=== PATIENT | male | born 1945 | race Caucasian/White ===

== ENCOUNTER 2022-11-28 09:08 | Emergency (ER) | payer MEDICARE ==
[2022-11-28] MEDS ORDERED: NEOSYNEPHRINE 0.5% NASAL SPRAY/DROPS ONE (09:49)
[2022-11-28 09:50] LABS: Absolute Neutrophil Ct (ANC) 2.95 x10^3/uL (1.4-6.9); Basophil (Absolute #) 0.05 x10^3/uL (0-0.4); Eosinophil % 2.7 % (0.00-5.0); Eosinophil (Absolute #) 0.14 x10^3/uL (0-0.5); Hematocrit 47.4 % (42-50); Hemoglobin 15.9 g/dL (12.5-18.0); Lymphocyte (Absolute #) 1.68 x10^3/uL (1.0-4.6); Mean Cell Volume 97.1 fL (78-100); Mean Corpuscular Hemoglobin 32.6 pg (26-32); Mean Corpuscular Hgb Concent. 33.5 g/dL (32-36); Mean Platelet Volume 10.2 fL (7.5-11.0); Monocyte (Absolute #) 0.42 x10^3/uL (0.0-1.3); Neutrophil % 56.1 % (36.0-66.0); Platelet Count 133 x10^3/uL (150-450); Red Blood Count 4.88 x10^6/uL (4.1-5.6); Red Cell Distribution Width 12.2 % (11.5-14.0); White Blood Count 5.3 x10^3/uL (4.0-10.5)
--- NOTE | 2022-11-28 10:02 | ERPHSYRPT ---
- History of Present Illness Source: patient, other () Exam Limitations: no limitations Patient Subjective Stated Complaint: Nose bleed Triage Nursing Assessment: Patient ambulated back to ED and transferred self to bed. Patient A+O X3. Patient's skn pink, warm and dry. Patient complains of nose bleed that started last night and stopped. Patient states he woke up at 0700 with left side of nose bleeding. Left side of nare noted to not have active bleeding at this time. Patient states he is on coumadin. Patient denies recent trauma. Patient also denies pain or discomfort. Physician History: 77 yo wm who is taking Coumadin for recurrent h/o DVT presents w intermittent L epistaxis. Pt wo epistaxis in ER. Last INR was low. He denies trau ma/melena/hematochezia/bleeding from gums/chest pain/dyspnes. Timing/Duration: abrupt onset Severity: mild ENT Location: nose (L nares) Prearrival Treatment: no prearrival treatment Associated Symptoms: denies symptoms, epistaxis Allergies/Adverse Reactions: Sulfa (Sulfonamide Antibiotics) Allergy (Mild, Verified 11/28/22 09:16) Home Medications: Losartan Potassium 100 mg PO DAILY 07/25/22 [History] Hx Tetanus, Diphtheria Vaccination/Date Given: Yes Hx Influenza Vaccination/Date Given: Yes Hx Pneumococcal Vaccination/Date Given: No Immunizations Up to Date: Yes Travel Risk - International Travel Have you traveled outside of the country in past 3 weeks: No - Coronavirus Screening Are you exhibiting any of the following symptoms?: No Close contact with a COVID-19 positive Pt in past 14-21 Days: No - Vaccine Status Have you recieved a Covid-19 vaccination: Yes Shirt Maker: Moderna - Vaccination Dates Date of 2cond Vaccination (if applicable): na - Review of Systems Constitutional: No Symptoms Eyes: Photophobia Ears, Nose, & Throat: No Symptoms, Epistaxis Respiratory: No Symptoms Cardiac: No Symptoms Abdominal/Gastrointestinal: No Symptoms Genitourinary Symptoms: No Symptoms Musculoskeletal: No Symptoms Skin: No Symptoms Neurological: No Symptoms Psychological: No Symptoms Endocrine: No Symptoms Hematologic/Lymphatic: No Symptoms Immunological/Allergic: No Symptoms - Past Medical History Pertinent Past Medical History: Yes Neurological History: No Pertinent History Cardiac History: Other Respiratory History: No Pertinent History Endocrine Medical History: Diabetes Type II Musculoskeletal History: No Pertinent History GI Medical History: No Pertinent History History: No Pertinent History Other Medical History: BLOOD CLOT IN R LEG - Past Surgical History Past Surgical History: Yes Other Surgical History: TONSILS - Social History Smoking Status: Never smoker Exposure to second hand smoke: No Drug Use: none Patient Lives Alone: No - Nursing Vital Signs Nursing Vital Signs: Initial Vital Signs Temperature 97.4 F 11/28/22 09:18 Pulse Rate 86 11/28/22 09:18 Respiratory Rate 18 11/28/22 09:18 Blood Pressure 174/91 11/28/22 09:18 O2 Sat by Pulse Oximetry 96 11/28/22 09:18 Pain Scale Pain Intensity 0 Hypertensive - Physical Exam General Appearance: no apparent distress Eye Exam: bilateral eye: normal inspection, PERRL, EOMI Ear Exam: bilateral ear: auricle normal, canal normal, TM normal Nasal Exam: dried blood (Dried blood L medial septum wo active bleeding) Throat Exam: normal, pharynx normal Neck Exam: normal inspection, non-tender, supple, full range of motion, trachea midline, No JVD Cardiovascular/Respiratory Exam: normal breath sounds, regular rate/rhythm, heart sounds normal Abdominal Exam: non-tender, soft, no organomegaly Neurologic Exam: alert, oriented x 3, cooperative, rivet thrower II-XII nml as tested, normal mood/affect Skin Exam: normal color, warm, dry SpO2 Interpretation: normal SpO2: 96 O2 Delivery: Room Air - Course Nursing assessment & vital signs reviewed: Yes Ordered Tests: Active Orders 24 hr Category Date Time Status CBC W DIFF Stat Lab 11/28/22 09:47 Completed PROTIME WITH INR Stat Lab 11/28/22 09:47 Completed PTT Stat Lab 11/28/22 09:47 Completed Medication Summary Discontinued Medications Generic Name Dose Route Start Last Admin Trade Name Freq PRN Reason Stop Dose Admin Phenylephrine HCl Confirm 11/28/22 09:49 Neosynephrine 0.5% Nasal [place]/Drops Administered 11/28/22 09:50 Dose 15 ml .ROUTE .STK-MED ONE Phenylephrine HCl 15 ml 11/28/22 11:03 11/28/22 11:04 Neosynephrine 0.5% Nasal [place]/Drops NS 11/28/22 11:04 15 ml STAT ONE Administration Lab/Rad Data: Laboratory Result Diagrams 11/28/22 09:47 Laboratory Results 11/28/22 11/28/22 Range/Units 09:47 09:47 WBC 5.3 (4.0-10.5) x10^3/uL RBC 4.88 (4.1-5.6) x10^6/uL Hgb 15.9 (12.5-18.0) g/dL Hct 47.4 (42-50) % MCV 97.1 (78-100) fL MCH 32.6 H (26-32) pg MCHC 33.5 (32-36) g/dL RDW 12.2 (11.5-14.0) % Plt Count 133 L (150-450) x10^3/uL MPV 10.2 (7.5-11.0) fL Gran % 56.1 (36.0-66.0) % Immature Gran % (Auto) 0.2 (0.00-0.4) % Nucleat RBC Rel Count 0.0 (0.00-0.1) % Eos # (Auto) 0.14 (0-0.5) x10^3/uL Immature Gran # (Auto) 0.01 (0.00-0.03) x10^3u/L Absolute Lymphs (auto) 1.68 (1.0-4.6) x10^3/uL Absolute Monos (auto) 0.42 (0.0-1.3) x10^3/uL Absolute Nucleated RBC 0.00 (0.00-0.01) x10^3u/L Lymphocytes % 32.0 (24.0-44.0) % Monocytes % 8.0 (0.0-12.0) % Eosinophils % 2.7 (0.00-5.0) % Basophils % 1.0 (0.0-0.4) % Absolute Granulocytes 2.95 (1.4-6.9) x10^3/uL Basophils # 0.05 (0-0.4) x10^3/uL PT 20.2 H (9.4-12.5) SECONDS INR 2.03 (0.8-3.0) APTT 36.0 (25.1-36.5) SECONDS All reviewed - Progress Progress: improved Progress Note: 11/28/22 10:52 Nasal clamp applied to pt upon ER arrival Neosynephrine applied to L nares No active epistaxis in ER Dried blood L medial nasal septum INR/Hb wnl No evidence of active bleeding elsewhere Pt wo active bleeding, so no reason to pack nose at this time No food or housing insecurities noted Pt is a full code Addition history per 11/28/22 15:09 Counseled pt/family regarding: lab results, diagnosis, need for follow-up - Departure Departure Disposition: Home Clinical Impression: Epistaxis Condition: Stable Critical Care Time: No Referrals: AYLA CRUZ MD [Primary Care Provider] - Follow up/PCP as directed Instructions: Nosebleeds (DC) Additional Instructions: If bleeding restarts, spray neosynephrine into nostril and hold pressure with clamp for 20-30 minutes. If bleeding then does not stop, return to ER for packing. Do not blow nose or rub nose for 1 day Use a humidifier and start saline nasal irrigation into nostrils in several days Watch your blood pressure
[2022-11-28 10:05] LABS: INR 2.03 (0.8-3.0); PROTIME 20.2 SECONDS (9.4-12.5)
[2022-11-28] MEDS ORDERED: NEOSYNEPHRINE 0.5% NASAL SPRAY/DROPS NS ONE (11:03)
[2022-11-28 11:07] VITALS: BP 180/88; PULSE 76
[2022-11-28 15:09] VITALS: O2SAT 96
== END 2022-11-28 11:18 | disposition home or self-care (01) ==
LOC: ED 09:08
DX: R04.0 Epistaxis (principal); E11.9 Type 2 diabetes mellitus without complications; Z79.01 Long term (current) use of anticoagulants; Z79.899 Other long term (current) drug therapy
CPT/HCPCS: 36415; 85025; 85610; 85730; 99282; A9270-GY